=== PATIENT | male | born 1965 | race Two or more races ===

== ENCOUNTER 2016-07-25 18:14 | Emergency (ER) | payer BC ==
[~2016-07-25] VITALS: Ht 172.7 cm; Wt 81.6 kg
[2016-07-25 18:26] VITALS: BP 152/84
[2016-07-25] MEDS ORDERED: DIPHTH,PERTUSS(ACELL),TET TOX 0.5 ML DISP.SYRIN. VAX IM ONE (18:30)
[2016-07-25] MEDS ORDERED: LIDOCAINE/EPI/TETRACAINE TOPICAL GEL 3 ML. TP ONE (18:30)
[2016-07-25] MEDS ORDERED: LIDOCAINE 1% / SOD BICARB 8.4% 20 ML VIAL. IJ ONE (18:30)
--- NOTE | 2016-07-25 18:31 | PHYS DOC ---
Adult General Chief Complaint Chief Complaint: LACERATION/AVULSION HPI HPI Patient is a 51 year old forearm who presents with left forearm laceration, patient states he accidentally got cut with a saw. Review of Systems Review of Systems Constitutional: Denies fever or chills [] Eyes: Denies change in visual acuity, redness, or eye pain [] Musculoskeletal: Denies back pain or joint pain [] Integument: left forearm laceration Neurologic: Denies headache, focal weakness or sensory changes [] Endocrine: Denies polyuria or polydipsia [] Current Medications Current Medications Current Medications Medications (Trade) Dose Ordered Sig/Roesndo Start Time Stop Time Status Last Admin Dose Admin Diphtheria/ Tetanus/Acell Pertussis (Boostrix) 0.5 ml ONCE ONCE 07/25/16 18:30 07/25/16 18:31 DC 07/25/16 18:57 0.5 ML Lidocaine/ Epinephrine (Let Topical) 3 ml 1X ONCE 07/25/16 18:30 07/25/16 18:31 DC 07/25/16 18:55 3 ML Lidocaine/Sodium Bicarbonate (Buffered Lidocaine 1%) 20 ml 1X ONCE 07/25/16 18:30 07/25/16 18:31 DC 07/25/16 18:56 20 ML Allergies Allergies Allergies Coded Allergies Type Severity Reaction Last Updated Verified No Known Drug Allergies 07/25/16 No Physical Exam Physical Exam Constitutional: Well developed, well nourished, no acute distress, non-toxic appearance. [] HENT: Normocephalic, atraumatic, bilateral external ears normal, oropharynx moist, no oral exudates, nose normal. [] Skin: left proximal lateral forearm with a laceration approx. 10 cm long.There is no obvious tendon involvement. Full ROM to the left forearm. Adequate radial , ulnar and medial sensation to the left FA. +2 left radial pulses. Cap refill < 2 seconds to the left forearm. Back: No tenderness, no CVA tenderness. [] Extremities: No tenderness, no cyanosis, no clubbing, ROM intact, no edema. [] Neurologic: Alert and oriented X 3, normal motor function, normal sensory function, no focal deficits noted. [] Psychologic: Affect normal, judgement normal, mood normal. [] Current Patient Data Vital Signs Vital Signs Date Time Temp Pulse Resp B/P (MAP) Pulse Ox O2 Delivery O2 Flow Rate FiO2 5/20/17 18:26 98.6 88 16 94 Room Air 98.6 EKG EKG [] Radiology/Procedures Radiology/Procedures Indication: Left forearm laceration Procedure: The patient was placed in the appropriate position and anesthesia around the laceration was let solution for 30 minutes and then 1% buffered lidocaine. The area was then cleaned with 250 ML of normal saline and 30ml of Betadine. The inner laceration was closed with 4 interrupted sutures using 4. 0 Vicryl, exterior laceration was closed with 12 interrupted sutures using 4. 0 Prolene. The wound area was then dressed with gauze Total repaired wound length:approx. 10 cm Other Items:none The patient tolerated the procedure well Complications:none Course & Med Decision Making Course & Med Decision Making Pertinent Labs and Imaging studies reviewed. (See chart for details) This is a 51-year-old male patient with left forearm laceration, patient got cut accidentally with by a saw. Left forearm x-rays interpreted by Dr. Ashton are negative for any acute findings. Patient was given tetanus in the ED. Laceration was closed by me as noted in procedures. Provided wound care instructions as well as return precautions. Dragon Disclaimer Dragon Disclaimer This electronic medical record was generated, in whole or in part, using a voice recognition dictation system. Departure Departure Impression: Primary Impression: Laceration of left forearm Disposition: 01 HOME, SELF-CARE Condition: STABLE Patient Instructions: Laceration Care, Adult Additional Instructions: Keep the laceration clean and dry. Cover it if it's draining. Apply Neosporin to it twice a day. Monitor it for signs and symptoms of infections including increased redness warmth or odor drainage from the area and return to the ED if they occur. Follow up with the ER in 7-10 days for suture removal Scripts Hydrocodone/Apap 5-325 (NORCO 5-325 TABLET) 1 Each Tablet 1-2 TAB PO Q4-6HRS, #10 TAB Prov: PRATIMA WRIGHT APRN 07/25/16 Problem Qualifiers Primary Impression: Laceration of left forearm Encounter type: initial encounter Qualified Codes: S51.812A - Laceration without foreign body of left forearm, initial encounter PRATIMA WRIGHT APRN July 25, 2016 18:31
[2016-07-25] MEDS ORDERED: HYDR-971 PO (21:14)
--- NOTE | 2016-07-26 08:22 | RAD ---
Indication: Pain, laceration proximally. Technique: 2 views of the left forearm are submitted for review. No comparison is available. Findings: There is no fracture or osseous lesion. Soft tissue laceration is noted along the proximal radius. Within the soft tissues at the level of the mid radius, away from the laceration site, is a potential foreign body measuring 3 mm. Impression: Soft tissue laceration proximally. Questionable potential foreign body within the soft tissues at the level of the mid radius, not near the laceration site.
== END 2016-07-25 21:16 | disposition home or self-care (01) ==
LOC: ER 20:08
DX: S51.812A Laceration without foreign body of left forearm, initial encounter (principal); W27.0XXA Contact with workbench tool, initial encounter; Y93.89 Activity, other specified; Y99.8 Other external cause status; Y92.89 Other specified places as the place of occurrence of the external cause
CPT/HCPCS: 12004; 73090; 90471; 90715; 99284-25